=== PATIENT | female | born 1960 | race Two or more races ===

== ENCOUNTER 2017-02-21 02:41 | Emergency (ER) | payer SELFPAY ==
[~2017-02-21] VITALS: Ht 165.1 cm; Wt 90.7 kg
[2017-02-21] MEDS ORDERED: diphenhdrAMINE HCL 25 MG CAP PO ONE ×2 (02:47→03:00)
[2017-02-21 06:31] VITALS: BP 159/80
[2017-02-21] MEDS ORDERED: EPINEPHrine HCL 1 MG/1 ML AMP SC ONE (06:45)
[2017-02-21] MEDS ORDERED: diphenhdrAMINE HCL 50 MG/1 ML VL IM ONE (06:45)
== END 2017-02-21 07:29 | disposition home or self-care (01) ==
LOC: ER 02:43
DX: T78.40XA Allergy, unspecified, initial encounter (principal); I10 Essential (primary) hypertension
CPT/HCPCS: 96372; 99284; J0171; J1200